=== PATIENT | female | born 1980 ===

== ENCOUNTER 2018-08-18 11:11 | Outpatient (CLI) | payer OTHER | END 2018-08-18 11:14 | disposition home or self-care (01) | LOC: SONOGRAMA 11:11 | DX: N64.89 Other specified disorders of breast (principal) ==

== ENCOUNTER → 2018-09-26 | Outpatient (CLI) | payer OTHER | END | disposition home or self-care (01) | LOC: SONOGRAMA 11:47 | DX: N60.11 Diffuse cystic mastopathy of right breast (principal); N60.12 Diffuse cystic mastopathy of left breast ==

== ENCOUNTER → 2019-03-30 | Outpatient (CLI) | payer OTHER | END | disposition home or self-care (01) | LOC: PRENATAL 13:57 | DX: O26.892 Other specified pregnancy related conditions, second trimester (principal); O09.212 Supervision of pregnancy with history of pre-term labor, second trimester ==

== ENCOUNTER 2019-08-25 22:12 | Inpatient (IN) | payer OTHER ==
[~2019-08-25] VITALS: Ht 165.1 cm; Wt 69.4 kg
== END 2019-08-29 16:01 | disposition home or self-care (01) | DRG 788 ==
LOC: LDR 22:12 → OB/GYN 22:12
PROVIDERS: ADMIT Obstetrics & Gynecology
PROC: 3E0P7VZ Introduction of Hormone into Female Reproductive, Via Natural or Artificial Opening (ICD-10-PCS; 2019-08-25)
PROC: 4A1HXCZ Monitoring of Products of Conception, Cardiac Rate, External Approach (ICD-10-PCS; 2019-08-25)
PROC: 10907ZC Drainage of Amniotic Fluid, Therapeutic from Products of Conception, Via Natural or Artificial Opening (ICD-10-PCS; 2019-08-26)
PROC: 3E033VJ Introduction of Other Hormone into Peripheral Vein, Percutaneous Approach (ICD-10-PCS; 2019-08-26)
PROC: 10D00Z1 Extraction of Products of Conception, Low, Open Approach (ICD-10-PCS; principal; 2019-08-27 00:45)
DX: O82 Encounter for cesarean delivery without indication (principal); O76 Abnormality in fetal heart rate and rhythm complicating labor and delivery; Z3A.40 40 weeks gestation of pregnancy; Z37.0 Single live birth